=== PATIENT | female | born 1985 | race Caucasian/White ===

== ENCOUNTER 2024-05-11 21:10 | Inpatient (IN) | payer MEDICAID ==
[~2024-05-11] VITALS: Ht 165.1 cm; Wt 83.6 kg
[2024-05-11] MEDS ORDERED: ACETAMINOPHEN 325MG TABLET PO ONE (21:45)
[2024-05-11 21:47] LABS: BASOPHILS % 0.6 % (0.0-2.0); DIFFERENTIAL COMMENT 0; EOSINOPHILS % 2.4 % (0.0-5.0); HEMATOCRIT. 34.2 % (36.0-48.0); HEMOGLOBIN. 11.3 g/dL (12.0-16.0); LYMPHOCYTES % 27.5 % (20.0-50.0); MEAN CORPUSCULAR HEMOGLOBIN 26.2 pg (28.0-32.0); MEAN CORPUSCULAR HGB CONC 33.1 g/dL (31.0-37.0); MEAN CORPUSCULAR VOLUME 79.3 fL (81.0-99.0); MEAN PLATELET VOLUME 8.6 fl (7.4-10.4); MONOCYTES % 6.8 % (2.0-8.0); NEUTROPHILS % 62.7 % (40.0-76.0); PLATELET 346 x1000/uL (130-400); RED BLOOD CELL COUNT 4.31 mill/uL (4.2-5.4); WHITE BLOOD COUNT 9.8 x1000/uL (4.5-11.0)
[2024-05-11 21:54] LABS: CARBON DIOXIDE 28 mEq/L (21-32); CHLORIDE 105 mEq/L (98-107); POTASSIUM 3.9 mEq/L (3.5-5.1); SODIUM 138 mEq/L (136-145)
[2024-05-11 21:55] LABS: CALCIUM 9.5 mg/dL (8.7-10.4)
[2024-05-11 21:57] LABS: D-DIMER 0.71 mg/L FEU (<0.50); INR 0.9; PROTHROMBIN TIME 10.2 sec (9.6-11.0)
[2024-05-11 21:59] LABS: CREATININE 0.8 mg/dL (0.6-1.0); GLUCOSE 103 mg/dL (70-105)
[2024-05-11 22:00] LABS: UREA NITROGEN BLOOD 16 mg/dL (9-23)
[2024-05-11 22:01] LABS: ALANINE AMINOTRANSFERASE 37 IU/L (10-49); ALBUMIN 4.3 g/dL (3.2-4.8); ASPARTATE AMINOTRANSFERASE 18 IU/L (<34)
[2024-05-11 22:02] LABS: BILIRUBIN TOTAL 0.2 mg/dL (0.1-1.0); PROTEIN TOTAL 7.3 g/dL (6.0-8.3)
[2024-05-11 22:05] LABS: HCG SCREEN NEGATIVE
[2024-05-11 22:25] LABS: BILIRUBIN DIRECT < 0.1 mg/dL (<=3.0); TROPONIN I HIGH SENSITIVITY < 4 ng/L (3.0-34)
[2024-05-11] MEDS ORDERED: NITROGLYCERIN 0.4MG TABLET SL SL ONE (23:45)
[2024-05-11] MEDS ORDERED: ASPIRIN 325MG EC TABLET PO ONE (23:45)
[2024-05-12] MEDS: CEFTRIAXONE 1GM/50ML 50 ML IV NR (00:15)
[2024-05-12] MEDS: AZITHROMYCIN 500MG/250ML 250 ML IV NR (00:15)
[2024-05-12] MEDS ORDERED: DOCUSATE SODIUM 100MG CAPSULE PO PRN (01:00)
[2024-05-12] MEDS ORDERED: LORAZEPAM 0.5MG TABLET PO PRN (01:00)
[2024-05-12] MEDS ORDERED: IPRATROPIUM/ALBUTEROL 0.5-3(2.5)MG/3ML NEB HHN PRN (01:00)
[2024-05-12] MEDS ORDERED: CLONIDINE 0.1MG TABLET PO PRN (01:00)
[2024-05-12] MEDS ORDERED: ACETAMINOPHEN 325MG TABLET PO PRN (01:00)
[2024-05-12] MEDS ORDERED: GUAIFENESIN 200MG/10ML SUGAR FREE UDC PO PRN (01:00)
[2024-05-12] MEDS: ASPIRIN 325MG EC TABLET PO NR (02:30)
[2024-05-12] MEDS: ACETAMINOPHEN 325MG TABLET PO NR (02:30)
[2024-05-12] MEDS: NITROGLYCERIN 0.4MG TABLET SL SL NR (02:30)
[2024-05-12 07:42] LABS: CREATINE KINASE MB FRACTION < 0.5 ng/mL (0.5-3.6)
[2024-05-12 07:44] LABS: CREATINE KINASE 42 IU/L (34-145)
[2024-05-12 08:07] LABS: TROPONIN I HIGH SENSITIVITY < 4 ng/L (3.0-34)
[2024-05-12] MEDS: PANTOPRAZOLE 40MG DR TABLET PO SCH (08:42)
[2024-05-12] MEDS: RISPERIDONE 1MG TABLET PO SCH (10:03)
[2024-05-12 11:01] LABS: CHLORIDE 108 mEq/L (98-107); POTASSIUM 4.6 mEq/L (3.5-5.1); SODIUM 138 mEq/L (136-145)
[2024-05-12 11:02] LABS: CARBON DIOXIDE 24 mEq/L (21-32)
[2024-05-12 11:03] VITALS: BP 103/68; PULSE 75; RESP 18; TEMP 36.5848
[2024-05-12 11:03] LABS: HEMATOCRIT 31.4 % (36.0-48.0); MEAN CORPUSCULAR HEMOGLOBIN 25.4 pg (28.0-32.0); MEAN CORPUSCULAR HGB CONC 31.7 g/dL (31.0-37.0); MEAN CORPUSCULAR VOLUME 80.1 fL (81.0-99.0); PLATELET 319 x1000/uL (130-400); RED BLOOD CELL COUNT 3.92 mill/uL (4.2-5.4); RED CELL DISTRIBUTION WIDTH 17.1 % (11.6-14.6); WHITE BLOOD COUNT 8.8 x1000/uL (4.5-11.0)
[2024-05-12 11:06] LABS: CREATININE 0.7 mg/dL (0.6-1.0)
[2024-05-12 11:07] LABS: GLUCOSE 106 mg/dL (70-105); UREA NITROGEN BLOOD 20 mg/dL (9-23)
[2024-05-12 12:00] VITALS: BP_SYST 103; BP_SYST 93; BP_DIAS 54; BP_DIAS 68; PULSE 71; PULSE 75; RESP 18; TEMP 36.22512; TEMP 36.55848; O2SAT 100; O2SAT 97
[2024-05-12] MEDS: ACETAMINOPHEN 325MG TABLET PO PRN (12:27)
[2024-05-12 16:00] VITALS: BP 106/55; PULSE 65; RESP 18; TEMP 36.3918; O2SAT 99
[2024-05-12 17:06] LABS: CREATINE KINASE MB FRACTION < 0.5 ng/mL (0.5-3.6)
[2024-05-12 17:07] LABS: CREATINE KINASE 41 IU/L (34-145)
[2024-05-12 17:08] LABS: TROPONIN I HIGH SENSITIVITY < 4 ng/L (3.0-34)
[2024-05-12 19:42] VITALS: BP 96/59; PULSE 72; RESP 20; TEMP 36.44736; O2SAT 100
[2024-05-12] MEDS: ATORVASTATIN CALCIUM 40MG TABLET PO SCH (20:48)
[2024-05-12 21:46] LABS: CLARITY URINE CLEAR (CLEAR); COLOR URINE YELLOW (YELLOW); GLUCOSE URINE NEGATIVE (NEGATIVE); KETONES URINE NEGATIVE (NEGATIVE); LEUKOCYTE ESTERASE URINE 2+ (NEGATIVE); NITRITE URINE NEGATIVE (NEGATIVE); OCCULT BLOOD URINE NEGATIVE (NEGATIVE); PH URINE 5.5 (4.5-8.0); PROTEIN URINE NEGATIVE (NEGATIVE); SPECIFIC GRAVITY URINE 1.044 (1.005-1.030); UROBILINOGEN URINE 0.2 E.U./dL (0.2-1.0)
[2024-05-12 22:08] LABS: BACTERIA URINE 1+; RBC URINE 0-2 /hpf (0-2); SQUAMOUS EPITHELIAL CELL URINE 1+ /lpf (RARE/1+)
[2024-05-12] MEDS ORDERED: IOHEXOL-350 100 ML BOTTLE ONE (23:00)
[2024-05-13 04:00] VITALS: BP 99/55; PULSE 71; RESP 20; TEMP 36.33624; O2SAT 96
[2024-05-13 06:16] LABS: CHLORIDE 108 mEq/L (98-107); POTASSIUM 4.3 mEq/L (3.5-5.1); SODIUM 140 mEq/L (136-145)
[2024-05-13 06:17] LABS: CALCIUM 9.2 mg/dL (8.7-10.4); CARBON DIOXIDE 26 mEq/L (21-32)
[2024-05-13 06:19] LABS: HEMATOCRIT 31.4 % (36.0-48.0); HEMOGLOBIN 10.3 g/dL (12.0-16.0); MEAN CORPUSCULAR HGB CONC 32.8 g/dL (31.0-37.0); MEAN CORPUSCULAR VOLUME 79.3 fL (81.0-99.0); PLATELET 311 x1000/uL (130-400); RED BLOOD CELL COUNT 3.95 mill/uL (4.2-5.4); RED CELL DISTRIBUTION WIDTH 16.9 % (11.6-14.6); WHITE BLOOD COUNT 6.6 x1000/uL (4.5-11.0)
[2024-05-13 06:22] LABS: CREATININE 0.7 mg/dL (0.6-1.0); GLUCOSE 98 mg/dL (70-105); UREA NITROGEN BLOOD 15 mg/dL (9-23)
[2024-05-13 08:00] VITALS: BP 94/61; PULSE 80; RESP 19; TEMP 36.22512; O2SAT 95
[2024-05-13] MEDS: ASPIRIN 81MG TABLET PO SCH (08:48)
[2024-05-13 12:00] VITALS: BP 101/59; PULSE 85; RESP 18; TEMP 36.3918; O2SAT 96
[2024-05-13 14:13] LABS: *AMPHETAMINES SCREEN URINE NEGATIVE (NEGATIVE); *BARBITURATES SCREEN URINE NEGATIVE (NEGATIVE); *BENZODIAZEPINES SCREEN URINE NEGATIVE (NEGATIVE); *COCAINE SCREEN URINE NEGATIVE (NEGATIVE); CANNABINOID URINE SCREEN NEGATIVE (NEGATIVE); ECSTASY MDMA SCREEN URINE NEGATIVE (NEGATIVE); METHADONE URINE SCREEN NEGATIVE (NEGATIVE); OPIATES URINE SCREEN NEGATIVE (NEGATIVE); PHENCYCLIDINE URINE SCREEN NEGATIVE (NEGATIVE)
[2024-05-13] MEDS ORDERED: RISP1 PO (16:28)
[2024-05-13 16:30] VITALS: BP 96/64; PULSE 87; RESP 17; TEMP 36.33624; O2SAT 96
[2024-05-13 20:00] VITALS: BP 91/52; PULSE 79; RESP 19; TEMP 36.28068; O2SAT 97
[2024-05-13] MEDS: SODIUM CHLORIDE 0.9% 500 ML IV NR (23:55)
[2024-05-14] VITALS: BP 84/48; PULSE 70; RESP 20; TEMP 36.114; O2SAT 98
[2024-05-14] MEDS ORDERED: SODIUM CHLORIDE 0.9% 250 ML IV ONE
[2024-05-14] MEDS ORDERED: ONDANSETRON HCL 4MG/2ML INJ IV NR (00:15)
[2024-05-14] MEDS ORDERED: NITROGLYCERIN 0.4MG TABLET SL SL PRN (00:15)
[2024-05-14] MEDS: SODIUM CHLORIDE 0.9% 1,000 ML IV NR (00:43)
[2024-05-14 04:00] VITALS: BP 96/65; PULSE 90; RESP 20; TEMP 36.33624; O2SAT 97
[2024-05-14 08:25] VITALS: BP 102/63; PULSE 88; RESP 20; TEMP 37.2252; O2SAT 97
[2024-05-14 12:20] VITALS: BP 96/48; PULSE 68; RESP 18; TEMP 36.50292; O2SAT 96
[2024-05-14 16:40] VITALS: BP 84/38; PULSE 71; RESP 15; TEMP 36.44736
[2024-05-14 20:00] VITALS: BP 102/61; PULSE 73; RESP 19; TEMP 36.50292; O2SAT 98
[2024-05-15] VITALS: BP 89/47; PULSE 73; RESP 18; TEMP 37.00296; O2SAT 98
[2024-05-15 04:00] VITALS: BP 116/57; PULSE 73; RESP 19; TEMP 36.50292; O2SAT 98
[2024-05-15 08:00] VITALS: BP 116/57; PULSE 73; RESP 19; TEMP 36.50292; O2SAT 98
[2024-05-15] MEDS: ONDANSETRON HCL 4MG/2ML INJ IV PRN (10:40)
[2024-05-15 12:00] VITALS: BP 102/59; PULSE 86; RESP 17; TEMP 36.61404; O2SAT 96
[2024-05-15] MEDS: SERTRALINE HCL 25MG TABLET PO SCH (12:32)
[2024-05-15 16:00] VITALS: BP 103/55; PULSE 86; RESP 16; TEMP 36.72516; O2SAT 96
[2024-05-15 20:00] VITALS: BP 99/64; PULSE 76; RESP 20; TEMP 36.44736; O2SAT 99
[2024-05-16] VITALS: BP 104/51; PULSE 59; RESP 20; TEMP 36.44736; O2SAT 99
[2024-05-16 04:00] VITALS: BP 91/40; PULSE 57; RESP 20; TEMP 36.3918; O2SAT 100
[2024-05-16 08:00] VITALS: BP 105/64; PULSE 65; RESP 18; TEMP 36.6696; O2SAT 97
[2024-05-16 12:00] VITALS: BP 104/60; PULSE 62; RESP 19; TEMP 36.55848; O2SAT 100
[2024-05-16] MEDS ORDERED: LIP40 PO (13:14)
[2024-05-16] MEDS ORDERED: FISH1CAP34 PO (13:14)
[2024-05-16] MEDS ORDERED: RISP1 PO (13:14)
[2024-05-16] MEDS ORDERED: SERT25TA74 PO (13:14)
[2024-05-16 13:44] VITALS: BP 101/60; PULSE 67; TEMP 98.1; O2SAT 97
[2024-05-17] MEDS ORDERED: SERTRALINE HCL 25MG TABLET PO SCH (09:00)
== END 2024-05-16 15:00 | disposition home or self-care (01) | DRG 198 ==
LOC: ER 21:10 → 5WST 23:46 → 7EST 05-12 10:59
PROVIDERS: ADMIT Internal Medicine; ATTEND Internal Medicine
DX: I24.9 Acute ischemic heart disease, unspecified (principal); G82.50 Quadriplegia, unspecified; R45.851 Suicidal ideations; R45.850 Homicidal ideations; G90.512 Complex regional pain syndrome I of left upper limb; F25.9 Schizoaffective disorder, unspecified; E11.9 Type 2 diabetes mellitus without complications; D50.9 Iron deficiency anemia, unspecified; F32.A Depression, unspecified; G89.4 Chronic pain syndrome; I10 Essential (primary) hypertension; M79.605 Pain in left leg; M54.2 Cervicalgia; M54.50 Low back pain, unspecified; E78.00 Pure hypercholesterolemia, unspecified; Z79.82 Long term (current) use of aspirin
CPT/HCPCS: 36415; 71045; 71275; 80048; 80061; 80076; 80305; 81003; 82550; 82553; 83036; 83605; 83880; 84145; 84484; 84703; 85025; 85027; 85379; 92523; 93005; 99291; J0456; J0696; J2405; Q9967